=== PATIENT | male | born 1995 | race Caucasian/White ===

== ENCOUNTER 2025-06-19 18:55 | Emergency (ER) | payer BC ==
[~2025-06-19] VITALS: Ht 185.4 cm; Wt 74.8 kg
[2025-06-19 18:59] VITALS: PULSE 74; RESP 18; TEMP 99.1
[2025-06-19] MEDS: TETANUS/DIPHTHERIA TOX ADULT 0.5 ML SYR IM ONE (19:30)
[2025-06-19 19:40] VITALS: BP 151/96; PULSE 74; RESP 18; TEMP 99.1; O2SAT 98
== END 2025-06-19 19:40 | disposition home or self-care (01) ==
LOC: FSED 18:58
DX: S01.112A Laceration without foreign body of left eyelid and periocular area, initial encounter (principal); W45.8XXA Other foreign body or object entering through skin, initial encounter; Y92.89 Other specified places as the place of occurrence of the external cause; F17.210 Nicotine dependence, cigarettes, uncomplicated
CPT/HCPCS: 90471; 90714; 99282